=== PATIENT | male | born 1960 | race Caucasian/White ===

== ENCOUNTER 2018-07-27 20:29 | Emergency (ER) | payer SELFPAY ==
[~2018-07-27] VITALS: Ht 175.3 cm; Wt 79.4 kg
[2018-07-27 21:05] VITALS: BP 154/72
[2018-07-27] MEDS ORDERED: FAMO-63 PO (21:45)
[2018-07-27] MEDS ORDERED: DIPH25CA58 PO (21:45)
[2018-07-27] MEDS ORDERED: PRED50TA PO (21:45)
[2018-07-27] MEDS ORDERED: EPIPEN 2-P0.3 MG/0.3 IJ (21:46)
--- NOTE | 2018-07-27 21:46 | PHYS DOC ---
Past Medical History Past Medical History: Cancer Past Surgical History: No Surgical History Alcohol Use: None Drug Use: None Adult General Chief Complaint Chief Complaint: DIFFICULTY SWALLOWING HPI HPI Patient is a 58 year old male who presents with was out in the yard working and clear yard where there is a whole bunch of the and poison sumac and began feeling like he was having an allergic reaction and his throat was swelling. Denies any wheezing or trouble breathing. Review of Systems Review of Systems Constitutional: Denies fever or chills [] Eyes: Denies change in visual acuity, redness, or eye pain [] HENT: Swelling to his throat. Denies nasal congestion or sore throat [] Respiratory: Denies cough or shortness of breath [] Cardiovascular: No additional information not addressed in HPI [] GI: Denies abdominal pain, nausea, vomiting, bloody stools or diarrhea [] : Denies dysuria or hematuria [] Musculoskeletal: Denies back pain or joint pain [] Integument: Denies rash or skin lesions [] Neurologic: Denies headache, focal weakness or sensory changes [] Endocrine: Denies polyuria or polydipsia [] All other systems were reviewed and found to be within normal limits, except as documented in this note. Current Medications Current Medications Current Medications Medications (Trade) Dose Ordered Sig/Jorge Start Time Stop Time Status Last Admin Dose Admin Diphenhydramine HCl (Benadryl) 50 mg 1X ONCE 07/27/18 22:00 07/27/18 22:01 DC 07/27/18 21:37 25 MG Famotidine (Pepcid) 20 mg 1X ONCE 07/27/18 22:00 07/27/18 22:01 DC 07/27/18 21:36 20 MG Prednisone (Prednisone) 50 mg 1X ONCE 07/27/18 22:00 07/27/18 22:01 DC 07/27/18 21:36 50 MG Allergies Allergies Allergies Coded Allergies Type Severity Reaction Last Updated Verified No Known Drug Allergies 07/27/18 No Physical Exam Physical Exam Constitutional: Well developed, well nourished, no acute distress, non-toxic appearance. [] HENT: Mild swelling of uvula. Normocephalic, atraumatic, bilateral external ears normal, oropharynx moist, no oral exudates, nose normal. [] Eyes: PERRLA, EOMI, conjunctiva normal, no discharge. [] Neck: Normal range of motion, no tenderness, supple, no stridor. [] Cardiovascular:Heart rate regular rhythm, no murmur [] Lungs & Thorax: Bilateral breath sounds clear to auscultation [] Abdomen: Bowel sounds normal, soft, no tenderness, no masses, no pulsatile masses. [] Skin: Warm, dry, no erythema, no rash. [] Back: No tenderness, no CVA tenderness. [] Extremities: No tenderness, no cyanosis, no clubbing, ROM intact, no edema. [] Neurologic: Alert and oriented X 3, normal motor function, normal sensory function, no focal deficits noted. [] Psychologic: Affect normal, judgement normal, mood normal. [] Current Patient Data Vital Signs Vital Signs Date Time Temp Pulse Resp B/P (MAP) Pulse Ox O2 Delivery O2 Flow Rate FiO2 07/27/18 21:05 98.2 92 17 154/72 (99) 98 Room Air 98.2 EKG EKG [] Radiology/Procedures Radiology/Procedures [] Course & Med Decision Making Course & Med Decision Making Patient is a 58 year old male who presents with was out in the yard working and clear yard where there is a whole bunch of the and poison sumac and began feeling like he was having an allergic reaction and his throat was swelling. Denies any wheezing or trouble breathing. Patient states he was not wearing a mask while doing yard work. He has a smoker. Patient states he took a swig of children's Benadryl at home. Patient states this all started about 2 hours ago. Patients throat has mild swelling of the uvula. Lungs are clear to auscultation all lobes and there is no wheezing. Patient speaks in full clear sentences. Skin is pink warm and dry. Patient is given Pepcid, prednisone, 25 mg of Benadryl. Patient denies any nausea, vomiting, abdominal pain, dizziness, shortness of air, chest pain. He has no other swelling or rashes to his body. His lips and tongue are not swelling or tingling. Inside of his mouth is not itching in his throat does not itch just states that it was starting to swell. Patient states that he does not feel like the swelling is getting any worse. Patient is stable and in no respiratory distress. After watching patient for 30 minutes after the medications were given patient states he is feeling much better and is ready to leave. Swelling has gone down in his throat. Lungs are still clear without wheezes. Patient is stable and discharged home with 5 days worth of prednisone, Pepcid, Benadryl, and a EpiPen if he should need it. Dragon Disclaimer Dragon Disclaimer This electronic medical record was generated, in whole or in part, using a voice recognition dictation system. Departure Departure Impression: Primary Impression: Allergic reaction Disposition: HOME, SELF-CARE Condition: STABLE Referrals: IDALIA DWYER (PCP) Patient Instructions: Anaphylactic Reaction Additional Instructions: TAKE MEDICATIONS PRESCRIBED. FOLLOW UP WITH PRIMARY CARE IF NEEDED. Scripts Epinephrine (EPIPEN 2-SHEILA) 0.3 Mg/0.3 Ml Auto.injct 0.3 MG IJ PRN PRN for ANAPHYLAXIS, #1 SYR Prov: MICHAEL LAY APRN 07/27/18 Famotidine (PEPCID) 20 Mg Tablet 20 MG PO BID for 5 Days, #10 TAB Prov: MICHAEL LAY APRN 07/27/18 Prednisone (PREDNISONE) 50 Mg Tablet 1 TAB PO DAILY, #5 TAB Prov: MICHAEL LAY APRN 07/27/18 Diphenhydramine Hcl (BENADRYL) 25 Mg Capsule 25 MG PO Q4-6HRS for 5 Days, CAP Prov: MICHAEL LAY APRN 07/27/18 Problem Qualifiers Primary Impression: Allergic reaction Encounter type: initial encounter Qualified Codes: T78.40XA - Allergy, unspecified, initial encounter MICHAEL LAY APRN Jul 27, 2018 21:46
[2018-07-27] MEDS ORDERED: predniSONE 20 MG TABLET PO ONE (22:00)
[2018-07-27] MEDS ORDERED: FAMOTIDINE 20 MG TABLET. PO ONE (22:00)
[2018-07-27] MEDS ORDERED: diphenhydrAMINE HCL 25 MG CAPSULE PO ONE (22:00)
== END 2018-07-27 22:06 | disposition home or self-care (01) ==
LOC: ER 20:29
DX: L23.7 Allergic contact dermatitis due to plants, except food (principal); K13.79 Other lesions of oral mucosa; F17.200 Nicotine dependence, unspecified, uncomplicated
CPT/HCPCS: 99284; J7512; Q0163